=== PATIENT | female | born 1965 | race Caucasian/White ===

== ENCOUNTER → 2020-04-18 07:44 | Outpatient (CLI) | payer OTHER, SELFPAY ==
[2020-04-18 08:13] LABS: Add Manual Diff / Slide Review NO; Basophils Absolute Auto 0 /uL (0-100); Basophils Percent Auto 0.4 % (0-2); Eosinophils Absolute Auto 200 /uL (0-450); Eosinophils Percent Auto 2.3 % (2-4); Hematocrit 43.2 % (36-46); Hemoglobin 14.2 g/dL (12.0-16.0); Lymphocytes Absolute Auto 1600 /uL (1100-4500); Lymphocytes Percent Auto 22.3 % (25-40); Mean Corpuscular HGB Conc 32.8 % (30-36); Mean Corpuscular Hemoglobin 30.6 PG (26-34); Mean Corpuscular Volume 93.2 fL (80-100); Monocytes Absolute Auto 600 /uL (0-900); Monocytes Percent Auto 8.4 % (3-14); Neutrophils Absolute Auto 4700 /uL (1500-7000); Neutrophils Percent Auto 66.6 % (50-75); Platelet Count 253 X10^3/uL (150-400); Red Blood Cell Count 4.64 X10^6/uL (4.0-5.2); Red Cell Distribution Width 13.8 % (11.6-14.8)
[2020-04-18 09:16] LABS: Alanine Aminotransferase 37 IU/L (<35); Albumin 4.6 g/dL (3.5-5.0); Albumin Globulin Ratio 1.2 (1.0-2.8); Alkaline Phosphatase 84 U/L (38-126); Aspartate Aminotransferase 25 IU/L (14-36); BUN Creatinine Ratio 24.4 (6-22); Bilirubin Total 0.7 mg/dL (0.2-1.3); Blood Urea Nitrogen 20 mg/dL (7-17); Calcium 9.7 mg/dL (8.4-10.2); Carbon Dioxide 33 mmol/L (22-32); Chloride 101 mmol/L (98-107); Cholesterol 292 mg/dL (140-199); Estimated Glomerular Filt Rate > 60.0 mL/min (>60); Globulin 3.7 g/dL (1.7-4.1); Glucose 126 mg/dL (70-100); HDL Cholesterol 42 mg/dL (40-60); HEMOLYSIS < 15 (0-50); LDL Cholesterol Calculated 215 mg/dL (<100); Potassium 4.3 mmol/L (3.4-5.1); Sodium 140 mmol/L (137-145); Total Protein 8.3 g/dL (6.3-8.2); Triglycerides 176 mg/dL (35-150)
[2020-04-18 09:45] LABS: TSH w/ Reflex to FT4 1.95 uIU/mL (0.47-4.68)
[2020-04-19 09:22] LABS: Hemoglobin A1C% w Est Avg Glu 6.6 % (4.0-6.0)
== END ==
PROVIDERS: PCP Family Medicine; Referring Provider Family Medicine; Visit Provider Family Medicine
DX: I10 Essential (primary) hypertension (principal); R73.9 Hyperglycemia, unspecified
CPT/HCPCS: 36415; 80053; 80061; 83036; 84443; 85025

== ENCOUNTER → 2020-09-12 11:41 | Outpatient (CLI) | payer OTHER, SELFPAY ==
[2020-09-12 13:35] LABS: COVID19 -Nasal RAPID Negative (Negative)
== END ==
PROVIDERS: PCP Family Medicine; Visit Provider Student in an Organized Health Care Education/Training Program
DX: Z20.822 Contact with and (suspected) exposure to COVID-19 (principal)
CPT/HCPCS: 87635

== ENCOUNTER → 2020-09-12 11:51 | Outpatient (CLI) | payer OTHER, SELFPAY ==
--- NOTE | 2020-09-13 09:18 | PM.TREADMILL ---
Cardiac Stress Test Report Referral & Results Date Patient Seen: 09/13/20 Time Patient Seen: 09:00 Requesting provider: Sweta Centeno Indication: Chest discomfort, left arm pain, MARCANO Rest ECG: Normal sinus rhythm Procedure Note: Today following both written and verbal informed consent the patient was exercised according to a standard Teja protocol patient went for a total of 5 minutes achieving a maximum heart rate of 159 maximum systolic blood pressure of 200. This is approximately 7 METs. Exercise was terminated at this point because of fatigue. Patient was also given Cardiolite through a previously started Hep-Lock IV by the nuclear powerplant mechanic approximately 1 minute prior to the cessation of exercise. Marked exercise impairment (KIA +30% on active scale). Exaggerated hemodynamic response to exercise. No signs or symptoms of angina. [address] deviations in multiple leads that resolved rapidly with rest. Impression: Intermediate probability for ischemia. Perfusion imaging pending. Please note: Actual ECG tracings can be found in the PACS system.
--- NOTE | 2020-09-13 18:26 | DI.NM.S_ITS ---
DATE OF SERVICE: 09/12/2020 PROCEDURE PERFORMED: Exercise treadmill stress and rest myocardial perfusion imaging with gating to assess ejection fraction and regional wall motion. ORDERING PROVIDER: Dr. Sweta Centeno. INDICATIONS: The patient is a 55-year-old diabetic female with left arm pain. EXERCISE TREADMILL TESTING: The patient was able to exercise for a total of 5 minutes 1 second on a standard Teja protocol suggesting moderately reduced exercise capacity with an KIA of +30 percent. She had an accelerated heart rate response to exercise with a resting heart rate of 107 BPM, increasing to 142 BPM after 3 minutes of exercise with a peak heart rate of 159 BPM (96 percent of her predicted maximum). She had a borderline hypertensive blood pressure response with a resting blood pressure 150/90, increasing to a maximum of 200/90. She had no chest discomfort or other anginal symptoms. Her resting ECG shows sinus rhythm with some nonspecific ST-segment abnormalities that remain unchanged with exercise. There were no significant arrhythmias seen. At 3 minutes 59 seconds of exercise at a heart rate of 154 BPM, 25.5 millicuries of technetium-99m Myoview was injected and the patient was imaged 15 minutes later using a gated SPECT acquisition protocol. The day prior, she had been injected with 24.5 millicuries of technetium-99m Myoview at rest and was again imaged 30 minutes later using a gated SPECT acquisition protocol. FINDINGS: 1. Raw data: There is fairly good myocardial tracer uptake with mild breast shadows noted. Lung/heart ratio was normal at 0.36 with a normal TID ratio of 0.97. 2. Quantitated gated SPECT. Post-stress ejection fraction is estimated at 82 percent without any focal wall motion abnormality. Resting ejection fraction is 83 percent with a normal resting end-diastolic volume of 71 mL. 3. Myocardial perfusion imaging: Post-stress perfusion images show a normal perfusion pattern with a very subtle mid anterior defect consistent with breast attenuation artifact, supported by its complete resolution on the prone images, revealing a homogeneous, normal perfusion pattern. The resting images show an identical perfusion pattern to that of the post-stress supine images without any areas of improvement. IMPRESSION: 1. Normal myocardial perfusion study. 2. Subtle fixed mid anterior defect that resolves on prone imaging, consistent with breast attenuation artifact. There is no evidence for myocardial ischemia or previous myocardial infarction. 3. Normal left ventricular systolic function without any focal wall motion abnormality. 4. Moderately reduced exercise capacity without angina or electrocardiographic evidence of ischemia. She had an accelerated heart rate and mild hypertensive blood pressure response to exercise. Brandie Narayan - KAYLAN/joyec/patt doc#: [id number]/job#: [id number] dd: 09/13/2020 13:26:00 dt: 09/13/2020 17:02:00 DICTATING MD/COPIES TO: Chao Pardo MD; Sweta Centeno, DO COPIES MNE: GENOVEVA;
== END ==
PROVIDERS: PCP Family Medicine; Referring Provider Family Medicine; Visit Provider Family Medicine
DX: R07.9 Chest pain, unspecified (principal); E11.9 Type 2 diabetes mellitus without complications; M79.602 Pain in left arm
CPT/HCPCS: 78452; 93016; 93017; 93018; A9502

== ENCOUNTER → 2021-01-18 07:11 | Outpatient (CLI) | payer OTHER, SELFPAY ==
[2021-01-18 08:58] LABS: Hemoglobin A1C% w Est Avg Glu 6.4 % (4.0-6.0)
[2021-01-18 09:07] LABS: Alanine Aminotransferase 25 IU/L (<35); Albumin 4.2 g/dL (3.5-5.0); Albumin Globulin Ratio 1.4 (1.0-2.8); Alkaline Phosphatase 77 U/L (38-126); Aspartate Aminotransferase 18 IU/L (14-36); BUN Creatinine Ratio 27.6 (6-22); Bilirubin Total 0.7 mg/dL (0.2-1.3); Blood Urea Nitrogen 21 mg/dL (7-17); Calcium 9.5 mg/dL (8.4-10.2); Carbon Dioxide 30 mmol/L (22-32); Chloride 105 mmol/L (98-107); Cholesterol 179 mg/dL (140-199); Estimated Glomerular Filt Rate > 60.0 mL/min (>60); Globulin 3.1 g/dL (1.7-4.1); Glucose 120 mg/dL (70-100); HDL Cholesterol 41 mg/dL (40-60); HEMOLYSIS < 15 (0-50); LDL Cholesterol Calculated 100 mg/dL (<100); Sodium 142 mmol/L (137-145); Total Protein 7.3 g/dL (6.3-8.2); Triglycerides 188 mg/dL (35-150)
[2021-01-18 11:23] LABS: Creatinine Urine Random 145.5 mg/dL
[2021-01-18 11:28] LABS: Microalbumi Creatinin Ratio Ur 5.4 ug/mg CR (<30); Microalbumin Urine Random 0.8 mg/dL (0-1.6)
== END ==
PROVIDERS: PCP Family Medicine; Referring Provider Family Medicine; Visit Provider Family Medicine
DX: E78.5 Hyperlipidemia, unspecified (principal); E11.9 Type 2 diabetes mellitus without complications; I10 Essential (primary) hypertension
CPT/HCPCS: 36415; 80053; 80061; 82043; 82570; 83036

== ENCOUNTER → 2021-10-23 06:54 | Outpatient (CLI) | payer OTHER, SELFPAY ==
[2021-10-23 07:53] LABS: Add Manual Diff / Slide Review NO; Basophils Absolute Auto 0 /uL (0-100); Basophils Percent Auto 0.3 % (0-2); Eosinophils Absolute Auto 200 /uL (0-450); Eosinophils Percent Auto 2.2 % (2-4); Hematocrit 35.3 % (36-46); Hemoglobin 11.6 g/dL (12.0-16.0); Lymphocytes Absolute Auto 2100 /uL (1100-4500); Lymphocytes Percent Auto 26.9 % (25-40); Mean Corpuscular Hemoglobin 29.1 PG (26-34); Mean Corpuscular Volume 88.3 fL (80-100); Monocytes Absolute Auto 600 /uL (0-900); Neutrophils Absolute Auto 4900 /uL (1500-7000); Neutrophils Percent Auto 62.6 % (50-75); Platelet Count 266 X10^3/uL (150-400); Red Cell Distribution Width 14.1 % (11.6-14.8); White Blood Cell Count 7.8 X10^3/uL (4.5-11.0)
[2021-10-23 08:04] LABS: Hemoglobin A1C% w Est Avg Glu 6.5 % (4.0-6.0)
[2021-10-23 08:11] LABS: Alanine Aminotransferase 20 IU/L (<35); Albumin 4.1 g/dL (3.5-5.0); Albumin Globulin Ratio 1.3 (1.0-2.8); Alkaline Phosphatase 89 U/L (38-126); Aspartate Aminotransferase 17 IU/L (14-36); BUN Creatinine Ratio 16.1 (6-22); Bilirubin Total 0.4 mg/dL (0.2-1.3); Blood Urea Nitrogen 15 mg/dL (7-17); Calcium 8.9 mg/dL (8.4-10.2); Carbon Dioxide 32 mmol/L (22-32); Chloride 105 mmol/L (98-107); Estimated Glomerular Filt Rate > 60 mL/min (>60); Globulin 3.2 g/dL (1.7-4.1); Glucose 117 mg/dL (70-100); HEMOLYSIS < 15 (0-50); Potassium 3.8 mmol/L (3.4-5.1); Sodium 143 mmol/L (137-145); Total Protein 7.3 g/dL (6.3-8.2)
== END ==
PROVIDERS: PCP Family Medicine; Referring Provider Family Medicine; Visit Provider Family Medicine
DX: E11.9 Type 2 diabetes mellitus without complications (principal); I10 Essential (primary) hypertension; Z85.841 Personal history of malignant neoplasm of brain
CPT/HCPCS: 36415; 80053; 83036; 85025

== ENCOUNTER → 2022-07-03 17:22 | Outpatient (CLI) | payer OTHER, SELFPAY ==
[2022-07-03 18:28] LABS: Hemoglobin A1C% w Est Avg Glu 6.2 % (4.0-6.0)
== END ==
PROVIDERS: PCP Family Medicine; Referring Provider Family Medicine; Visit Provider Family Medicine
DX: E11.9 Type 2 diabetes mellitus without complications (principal)
CPT/HCPCS: 36415; 83036

== ENCOUNTER → 2022-12-24 10:16 | Outpatient (CLI) | payer OTHER, SELFPAY ==
[2022-12-24 11:49] LABS: Alanine Aminotransferase 28 IU/L (<35); Albumin 4.4 g/dL (3.5-5.0); Albumin Globulin Ratio 1.4 (1.0-2.8); Alkaline Phosphatase 106 U/L (38-126); Aspartate Aminotransferase 16 IU/L (14-36); BUN Creatinine Ratio 23.2 (6-22); Bilirubin Total 0.4 mg/dL (0.2-1.3); Blood Urea Nitrogen 19 mg/dL (7-17); Calcium 9.4 mg/dL (8.4-10.2); Carbon Dioxide 31 mmol/L (22-32); Chloride 102 mmol/L (98-107); Cholesterol 181 mg/dL (140-199); Estimated Glomerular Filt Rate > 60 mL/min (>60); Globulin 3.1 g/dL (1.7-4.1); Glucose 124 mg/dL (70-100); HDL Cholesterol 43 mg/dL (40-60); HEMOLYSIS < 15 (0-50); LDL Cholesterol Calculated 98 mg/dL (<100); Potassium 4.7 mmol/L (3.4-5.1); Sodium 141 mmol/L (137-145); Total Protein 7.5 g/dL (6.3-8.2); Triglycerides 199 mg/dL (35-150)
[2022-12-24 12:40] LABS: Creatinine Urine Random 213.5 mg/dL
[2022-12-24 12:46] LABS: Microalbumi Creatinin Ratio Ur 4.6 ug/mg CR (<30)
[2022-12-25 04:38] LABS: x Labcorp Estim. Avg Glu (eAG) 137 mg/dL (.); x Labcorp Hemoglobin A1c 6.4 % (4.8-5.6)
== END ==
PROVIDERS: PCP Family Medicine; Referring Provider Family Medicine; Visit Provider Family Medicine
DX: E11.9 Type 2 diabetes mellitus without complications (principal); I10 Essential (primary) hypertension
CPT/HCPCS: 36415; 80053; 80061; 82043; 82570; 83036

== ENCOUNTER → 2023-03-11 10:53 | Outpatient (CLI) | payer OTHER, SELFPAY ==
--- NOTE | 2023-03-11 10:54 | DI.MG.S_ITS ---
BILATERAL DIGITAL SCREENING MAMMOGRAM 3D/2D WITH CAD: 03/11/2023 CLINICAL: Routine screening. Comparison is made to exams dated: 05/06/2012 mammogram and 11/05/2015 mammogram - Outside facility. There are scattered areas of fibroglandular density in both breasts (category b / 25%-50% glandular tissue). Current study was also evaluated with a Computer Aided Detection (CAD) system. No significant masses, calcifications, or other findings are seen in either breast. There has been no significant interval change. IMPRESSION: NEGATIVE There is no mammographic evidence of malignancy. A 1 year screening mammogram is recommended. Based on the Tyrer Cuzick model (a risk assessment model) the patient's lifetime risk is 5.5% and her 10 year risk is 1.9%. According to the ACR, ACS, and NCCN guidelines, an annual breast MRI exam along with mammogram is recommended if the patient's lifetime risk is 20% or greater. This exam was interpreted at Station ID: [id number]. NOTE: For mammograms, a report in lay terms will be sent to the patient. Approximately 15% of breast malignancies will not be visualized mammographically. In the management of a palpable breast mass, a negative mammogram must not discourage biopsy of a clinically suspicious lesion. Electronically Signed By: Len beltre/benigno:03/11/2023 14:19:15 letter sent: Normal Exam ACR BI-RADS Category 1: Negative [id number]
== END ==
PROVIDERS: PCP Family Medicine; Referring Provider Family Medicine; Visit Provider Family Medicine
DX: Z12.31 Encounter for screening mammogram for malignant neoplasm of breast (principal)
CPT/HCPCS: 77063; 77067

== ENCOUNTER → 2023-07-01 09:14 | Outpatient (CLI) | payer OTHER, SELFPAY ==
[2023-07-01 10:24] LABS: Add Manual Diff / Slide Review NO; Basophils Absolute Auto 0 /uL (0-100); Basophils Percent Auto 0.5 % (0-2); Eosinophils Absolute Auto 100 /uL (0-450); Eosinophils Percent Auto 1.3 % (2-4); Hemoglobin 13.6 g/dL (12.0-16.0); Lymphocytes Absolute Auto 2000 /uL (1100-4500); Lymphocytes Percent Auto 21.9 % (25-40); Mean Corpuscular HGB Conc 33.3 % (30-36); Mean Corpuscular Hemoglobin 29.9 PG (26-34); Mean Corpuscular Volume 89.8 fL (80-100); Monocytes Absolute Auto 600 /uL (0-900); Monocytes Percent Auto 6.6 % (3-14); Neutrophils Absolute Auto 6200 /uL (1500-7000); Neutrophils Percent Auto 69.7 % (50-75); Platelet Count 271 X10^3/uL (150-400); Red Blood Cell Count 4.56 X10^6/uL (4.0-5.2); Red Cell Distribution Width 13.8 % (11.6-14.8); White Blood Cell Count 8.9 X10^3/uL (4.5-11.0)
[2023-07-01 10:34] LABS: Hemoglobin A1C% w Est Avg Glu 6.1 % (4.0-6.0)
[2023-07-01 10:37] LABS: Blood Urea Nitrogen 17 mg/dL (7-17); Calcium 10.1 mg/dL (8.4-10.2); Carbon Dioxide 29 mmol/L (22-32); Chloride 101 mmol/L (98-107); Estimated Glomerular Filt Rate > 60 mL/min (>60); Glucose 106 mg/dL (70-100); HEMOLYSIS < 15 (0-50); Sodium 140 mmol/L (137-145)
[2023-07-01 11:29] LABS: HIV 1 & 2 Ab/Ag 4th Gen Combo NEGATIVE (NEGATIVE); Hep C Virus Ab w/Reflex Quant NEGATIVE s/c (NEGATIVE)
== END ==
PROVIDERS: PCP Family Medicine; Referring Provider Family Medicine; Visit Provider Family Medicine
DX: Z00.00 Encounter for general adult medical examination without abnormal findings (principal); R73.01 Impaired fasting glucose
CPT/HCPCS: 36415; 80048; 83036; 85025; 86803; 87389

== ENCOUNTER → 2023-12-14 13:39 | Outpatient (CLI) | payer OTHER, SELFPAY ==
[2023-12-14 15:12] LABS: Hemoglobin A1C% w Est Avg Glu 6.2 % (4.0-6.0)
[2023-12-14 15:54] LABS: TSH w/ Reflex to FT4 1.27 uIU/mL (0.47-4.68)
== END ==
LOC: LAB 13:41
PROVIDERS: PCP Family Medicine; Referring Provider Family Medicine; Visit Provider Family Medicine
DX: I10 Essential (primary) hypertension (principal); R53.82 Chronic fatigue, unspecified; E66.9 Obesity, unspecified; E11.9 Type 2 diabetes mellitus without complications
CPT/HCPCS: 36415; 83036; 84443

== ENCOUNTER → 2024-04-12 15:17 | Outpatient (CLI) | payer OTHER, SELFPAY ==
--- NOTE | 2024-04-12 15:18 | DI.MG.S_ITS ---
BILATERAL DIGITAL SCREENING MAMMOGRAM 3D/2D WITH CAD: 04/12/2024 CLINICAL: Routine screening. Comparison is made to exams dated: 03/11/2023 mammogram - [facility], 11/05/2015 mammogram, and 05/06/2012 mammogram - Outside facility. There are scattered areas of fibroglandular density (category b / 25%-50% glandular tissue). Current study was also evaluated with a Computer Aided Detection (CAD) system. No significant masses, calcifications, or other findings are seen in either breast. There has been no significant interval change. IMPRESSION: NEGATIVE There is no mammographic evidence of malignancy. A 1 year screening mammogram is recommended. Based on the Tyrer Cuzick model (a risk assessment model) the patient's lifetime risk is 5.4% and her 10 year risk is 2.0%. According to the ACR, ACS, and NCCN guidelines, an annual breast MRI exam along with mammogram is recommended if the patient's lifetime risk is 20% or greater. This exam was interpreted at Station ID: [id number]. NOTE: For mammograms, a report in lay terms will be sent to the patient. Approximately 15% of breast malignancies will not be visualized mammographically. In the management of a palpable breast mass, a negative mammogram must not discourage biopsy of a clinically suspicious lesion. Electronically Signed By: Lindsay Garcia M.D., Ph.D. vanessa/benigno:04/14/2024 16:57:09 letter sent: Normal Exam ACR BI-RADS Category 1: Negative
== END ==
PROVIDERS: PCP Family Medicine; Referring Provider Family Medicine; Visit Provider Family Medicine
DX: Z12.31 Encounter for screening mammogram for malignant neoplasm of breast (principal)
CPT/HCPCS: 77063; 77067

== ENCOUNTER → 2024-05-30 15:17 | Outpatient (CLI) | payer OTHER, SELFPAY ==
[2024-05-30 16:02] LABS: Hemoglobin A1C% w Est Avg Glu 5.6 % (4.0-6.0)
[2024-05-30 16:22] LABS: Blood Urea Nitrogen 15 mg/dL (7-17); Calcium 9.1 mg/dL (8.4-10.2); Carbon Dioxide 26 mmol/L (22-32); Chloride 106 mmol/L (98-107); Cholesterol 150 mg/dL (140-199); Estimated Glomerular Filt Rate > 60 mL/min (>60); Glucose 88 mg/dL (70-100); HDL Cholesterol 42 mg/dL (40-60); HEMOLYSIS < 15 (0-50); LDL Cholesterol Calculated 85 mg/dL (<100); Potassium 3.5 mmol/L (3.4-5.1); Sodium 141 mmol/L (137-145); Triglycerides 115 mg/dL (35-150)
== END ==
LOC: LAB 15:18
PROVIDERS: PCP Family Medicine; Referring Provider Family Medicine; Visit Provider Family Medicine
DX: R73.01 Impaired fasting glucose (principal); E78.5 Hyperlipidemia, unspecified; I10 Essential (primary) hypertension
CPT/HCPCS: 36415; 80048; 80061; 83036

== ENCOUNTER 2024-06-21 06:27 | Day surgery (SDC) | payer OTHER, SELFPAY ==
[2024-06-21 07:04] VITALS: BP 125/85; PULSE 94; RESP 18; TEMP 36.3; O2SAT 100
[2024-06-21] MEDS: FLEETS ENEMA 1 EACH PR (07:35)
--- NOTE | 2024-06-21 07:42 | SUR.PREOP ---
Patients stool continues to remain cloudy and Dr. Connell aware and saw the stool. MD will continue to do procedure. Pt is pleasant and cooperative.
--- NOTE | 2024-06-21 07:44 | PM.HP.1 ---
History of Present Illness History of Present Illness Date Patient Seen: 06/21/24 Time Patient Seen: 07:44 Chief complaint: Screening Colonoscopy Narrative: Brandie Nuñez is a 58 year old woman here for her first Screening colonoscopy. [facility] Medical History (Updated 06/21/24 @ 07:45 by Shadi Connell MD) Menopausal syndrome (hot flashes) Depression, unspecified Ruptured cerebral aneurysm (~01/2021) Hearing loss Vertigo Obesity (BMI 30-39.9) Seizure (~2000) Rubella (~1969) Measles (~1968) History of brain cancer Essential hypertension Surgical History Anesthesia History of arthroscopy of knee (~2009) H/O brain surgery S/P tonsillectomy and adenoidectomy (~1971) History of hysterectomy (~2004) H/O section Family History Father MVA (motor vehicle accident) Mother Alcoholism Malignant melanoma Cancer Back pain Grandfather Lymphoma Diabetes mellitus Cancer Social History marital status: number of children: 3 household members: spouse lives independently: Yes housing: house education level: college occupational status: employed Smoking Status: Never smoker alcohol intake: never substance use type: does not use Meds Home Medications and Allergies Home Medications Medication Instructions Recorded Confirmed Type cetirizine 10 mg tablet (Zyrtec) 10 mg PO DAILY 04/17/20 06/21/24 History Disabled parking permit #1 ea 08/10/23 05/30/24 Rx fezolinetant 45 mg tablet (Veozah) 45 mg PO DAILY #30 tabs 09/14/23 06/21/24 Rx amlodipine 10 mg tablet See Rx Instructions .Route 12/14/23 06/21/24 Rx .COMPLEX #90 tabs atorvastatin 20 mg tablet See Rx Instructions .Route 12/14/23 06/21/24 Rx .COMPLEX #90 tabs glipizide 2.5 mg tablet, extended 2.5 mg PO DAILY #90 tabs 12/14/23 06/21/24 Rx release 24 hr losartan 100 mg tablet See Rx Instructions .Route 12/14/23 06/21/24 Rx .COMPLEX #90 tabs Subcutaneous Supplies Kit #12 ea 12/22/23 05/30/24 Rx fluticasone propionate 110 1 inh inhalation BID PRN cough #12 04/26/24 06/21/24 Rx mcg/actuation HFA aerosol inhaler grams sodium,potassium,mag sulfates 17.5 See Rx Instructions PO .COMPLEX 05/17/24 06/21/24 Rx gram-3.13 gram-1.6 gram oral soln #354 mL (Suprep Bowel Prep Kit) fluoxetine 10 mg capsule (Prozac) 10 mg PO QPM #90 caps 05/30/24 06/21/24 Rx semaglutide (weight loss) 0.25 1 mg (2 mL) SUBCUT QWEEK #9 mL 05/30/24 06/21/24 Rx mg/0.5 mL subcutaneous pen injector (MD-IT) Allergies Allergy/AdvReac Type Severity Reaction Status Date / Time metformin AdvReac Mild FEELING ILL Verified 06/21/24 07:36 Exam Vital Signs (past 8 hours): - 06/21/24 07:04 Temperature 97.4 F L Pulse Rate 94 H Respiratory Rate 18 Blood Pressure 125/85 Pulse Oximetry 100 Oxygen Delivery Method Room Air Oxygen Delivery Method Room Air Const General: No acute distress Resp Effort & Inspection: normal respiratory effort Assessment & Plan Assessment and plan (1) Colon cancer screening: Status: Acute Plan Colonoscopy Time-Based Coding :: [TOTAL MINUTES] spent with patient and on the chart (including review of chart, obtaining history, exam, reviewing outside data, placing orders, documenting exam and treatment plan, and counseling patient) on [DATE].
[2024-06-21 08:09] VITALS: BP 107/75; PULSE 100; RESP 16; TEMP 36.4; O2SAT 96
--- NOTE | 2024-06-21 08:12 | PM.OP.COLON ---
Operative Date/Time/Diagnoses Date of procedure: 06/21/24 Time of procedure: 08:12 Pre-op diagnosis: Colon cancer screening Post-op diagnosis: same Procedure & Clinicians Study performed: Colonoscopy Same procedure as scheduled: Yes Surgeon: Shadi Connell Procedure Notes Procedure in detail: Surgeon: Shadi Connell MD Anesthesia: Alexsandra Sherwood CRNA Procedure: The patient was brought to the endoscopy suite, placed in left lateral decubitus position. The patient was connected to monitoring devices. A time-out was performed. Sedation was administered. Once the patient was adequately sedated, a digital rectal exam was performed and was normal. The scope was then inserted and advanced to the cecum where the appendiceal orifice was identified and photographed. The scope was then slowly withdrawn over greater than 6 minutes. The mucosa was thoroughly inspected. No abnormalities were identified. The scope was retroflexed in the rectum. The scope was straightened and removed. The patient was awakened and brought to recovery. Scope withdrawal time: 6 minutes Sedation time: 10 minute EBL: 0 Findings: Normal colon Post-procedure Recommendations: Colonoscopy in 10 years Disposition: PACU
[2024-06-21 08:16] VITALS: BP 115/80; PULSE 104; RESP 16; O2SAT 98
[2024-06-21 08:20] VITALS: BP 104/69; PULSE 101; RESP 16; TEMP 36.6; O2SAT 98
[2024-06-21 08:27] VITALS: BP 114/73; PULSE 94; RESP 18; O2SAT 98
== END 2024-06-21 08:34 | disposition home or self-care (01) ==
PROVIDERS: Surgery; PCP Family Medicine; Referring Provider Surgery; Visit Provider Surgery
PROC: 0DJD8ZZ Inspection of Lower Intestinal Tract, Via Natural or Artificial Opening Endoscopic (ICD-10-PCS; CPT 45378; principal; 2024-06-21 07:45)
DX: Z12.11 Encounter for screening for malignant neoplasm of colon (principal)
CPT/HCPCS: 45378; J2405; J2704

== ENCOUNTER → 2024-12-01 14:13 | Outpatient (CLI) | payer OTHER, SELFPAY | PROVIDERS: PCP Family Medicine; Referring Provider Family Medicine; Visit Provider Family Medicine | DX: R73.01 Impaired fasting glucose (principal) | CPT/HCPCS: 36415; 83036 ==

== ENCOUNTER → 2025-05-30 15:14 | Outpatient (CLI) | payer OTHER, SELFPAY ==
--- NOTE | 2025-05-30 15:15 | DI.MG.S_ITS ---
MM screening mammo BI: 05/30/2025. BI-RADS: 1 CLINICAL: 59-year old female for bilateral screening mammogram. Tyrer-Cuzick lifetime risk of 4.4%. No personal or first-degree family history of breast cancer. PRIOR EXAMS 04/12/2024, 03/11/2023. MAMMOGRAPHY TECHNIQUE: 2D and 3D (tomosynthesis) digital mammographic views obtained, with additional images as needed for full coverage. Current study was also evaluated with a Computer Aided Detection (CAD) system. DENSITY B. There are scattered areas of fibroglandular density. MAMMOGRAPHY FINDINGS Bilateral: No suspicious mass, asymmetry, microcalcification, or other abnormality seen. No significant change from comparison. IMPRESSION: * No evidence of malignancy. RECOMMENDATIONS Bilateral * Annual screening mammography. OVERALL ASSESSMENT CATEGORY BI-RADS-1: Negative. The [employer] recommends annual screening mammography beginning at age 40 for women with average risk of breast cancer. ELECTRONICALLY SIGNED: Marquise Osorio M.D. on 05/31/2025 at 10:01:23 AM PT Interpreting Station ID: [id number]
== END ==
PROVIDERS: PCP Family Medicine; Referring Provider Family Medicine; Visit Provider Family Medicine
DX: Z12.31 Encounter for screening mammogram for malignant neoplasm of breast (principal)
CPT/HCPCS: 77063; 77067